=== PATIENT | female | born 1965 | race Caucasian/White ===

== ENCOUNTER 2021-01-31 10:05 | Emergency (ER) | payer OTHER ==
[~2021-01-31] VITALS: Ht 167.6 cm; Wt 136.1 kg
[~2021-01-31 10:05] MED LIST: ENOXAPARIN80 MG/0.8 SUBQ; HYDROCODON-ACE1 EACH PO; MULTIVITAMINS1 EAC7 PO; VICODIN ES TAB1 EACH PO
[2021-01-31] MEDS ORDERED: LEVO-T25 MCG PO (10:18)
[2021-01-31] MEDS ORDERED: TRULICITY0.75 MG/0. SUBQ (10:18)
[2021-01-31] MEDS ORDERED: MEDROXYPROGESTER5 MG PO (10:18)
[2021-01-31] MEDS ORDERED: TRAMADOL 50 MG50 MG PO (10:19)
[2021-01-31] MEDS ORDERED: JARDIANCE10 MG PO (10:19)
[2021-01-31] MEDS ORDERED: SIMVASTATIN80 MG PO (10:19)
[2021-01-31] MEDS ORDERED: MELOXICAM7.5 MG PO (10:19)
[2021-01-31] MEDS ORDERED: LISINOPRIL10 MG PO (10:19)
[2021-01-31] MEDS ORDERED: VITAMIN B-1100 M2 PO (10:20)
[2021-01-31 10:52] LABS: ABSOLUTE BASOPHILS 0.1 thou/uL (0.0-0.2); ABSOLUTE EOSINOPHILS 0.2 thou/uL (0.0-0.7); ABSOLUTE LYMPHOCYTES 2.7 thou/uL (0.8-5.3); ABSOLUTE MONOCYTES 0.8 thou/uL (0.0-1.2); ABSOLUTE NEUTROPHILS 6.6 thou/uL (1.6-8.1); BASOPHILS 0.7 %; EOSINOPHILS 2.1 %; HEMATOCRIT 44.3 % (37.0-47.0); HEMOGLOBIN 15.2 gm/dL (12.0-15.0); LYMPHOCYTES 25.8 %; MCHC 34.4 g/dL (28.0-37.0); MONOCYTES 8.2 %; MPV 8.2 fl. (7.2-11.1); NUCLEATED RBCS 0 /100WBC; PLATELET COUNT* 276 thou/uL (150-400); POLYS 63.2 %; RBC 4.76 mil/uL (4.20-5.00); RDW-CV 13.6 % (10.5-14.5); WBC 10.4 thou/uL (4.0-11.0)
[2021-01-31 11:02] LABS: CALCIUM 8.7 mg/dL (8.5-10.1); CREATININE 0.8 mg/dL (0.6-1.3); POTASSIUM 4.2 mmol/L (3.5-5.1)
[2021-01-31 11:07] LABS: ALBUMIN 3.9 g/dL (3.4-5.0); TOTAL BILIRUBIN 0.2 mg/dL (<0.1-1.0); TOTAL PROTEIN 7.8 g/dL (6.4-8.2)
[2021-01-31] MEDS ORDERED: MECLIZINE HCL25 M1 PO (12:34)
[2021-01-31] MEDS ORDERED: AUGMENTIN 875-1 EACH PO (12:34)
[2021-01-31 12:45] VITALS: BP 104/56
--- NOTE | 2021-02-02 13:47 | EKG ---
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 : 1965 Requested By: Case Sainz Order Number: [id number] MD: Isaac Hurtado Measurements Intervals Dobson Rate: 67 P: 24 MA: 163 QRS: -33 QRSD: 94 T: 33 QT: 415 QTc: 438 Interpretive Statements Sinus rhythm Left axis deviation Compared to ECG 05/24/2012 11:10:13 Left-axis deviation now present Ventricular premature complex(es) no longer present Electronically Signed On 02-02-2021 13:47:40 CDT by Isaac Hurtado [email or web address] <ELECTRONICALLY SIGNED> By: Isaac Hurtado MD, [facility] 02/02/21 1347 1056 1056 Isaac Hurtado MD, [facility] /EPI
== END 2021-01-31 12:45 | disposition home or self-care (01) ==
LOC: M.ERS 10:05
PROVIDERS: Emergency Medicine Emergency Medical Services
DX: H66.93 Otitis media, unspecified, bilateral (principal); R42 Dizziness and giddiness